=== PATIENT | male | born 1985 | race Caucasian/White ===

== ENCOUNTER 2017-05-01 13:38 | Emergency (ER) | payer OTHER ==
[2017-05-01 13:49] VITALS: BP 144/87
[2017-05-01] MEDS ORDERED: NAPROXEN 250 MG TABLET PO ONE (14:01)
--- NOTE | 2017-05-01 14:04 | ER Document Report ---
ED Extremity Problem, Lower - General Chief Complaint: Foot Pain Stated Complaint: BILATERAL FOOT INJURY Time Seen by Provider: 05/01/17 13:57 Notes: Patient is a 31-year-old male who presents with bilateral plantar foot pain after he jumped off a loft and landed on his bilateral heels. He is having worsening pain at his arches and his Achilles tendon. Denies back pain, open wounds, numbness or tingling. TRAVEL OUTSIDE OF THE [place] IN LAST 30 DAYS: No - Related Data Allergies/Adverse Reactions: No Known Allergies Allergy (Verified 05/01/17 13:47) Past Medical History - General Information source: Patient - Social History Smoking Status: Current Every Day Smoker Chew tobacco use (# tins/day): No Frequency of alcohol use: Social Drug Abuse: None Family History: Reviewed & Not Pertinent Patient has suicidal ideation: No Patient has homicidal ideation: No Renal/ Medical History: Denies: Hx Peritoneal Dialysis Surgical Hx: Negative - Immunizations Hx Diphtheria, Pertussis, Tetanus Vaccination: Yes Review of Systems - Review of Systems Notes: REVIEW OF SYSTEMS: CONSTITUTIONAL: -fevers, -chills EENT: -eye pain, -difficulty swallowing, -nasal congestion CARDIOVASCULAR:-chest pain, -syncope. RESPIRATORY: -cough, -SOB GASTROINTESTINAL: -abdominal pain, - nausea, -vomiting, -diarrhea GENITOURINARY: -dysuria, -hematuria MUSCULOSKELETAL: +B/L foot pain, -back pain, -neck pain SKIN: -rash or skin lesions. HEMATOLOGIC: -easy bruising or bleeding. LYMPHATIC: -swollen, enlarged glands. NEUROLOGICAL: -altered mental status or loss of consciousness, -headache, - neurologic symptoms PSYCHIATRIC: -anxiety, -depression. ALL OTHER SYSTEMS REVIEWED AND NEGATIVE. Physical Exam - Vital signs Vitals: Temp Pulse Resp BP Pulse Ox 98.0 F 99 16 144/87 H 98 05/01/17 13:48 05/01/17 13:48 05/01/17 13:48 05/01/17 13:48 05/01/17 13:48 - Notes Notes: PHYSICAL EXAMINATION: GENERAL: Well-appearing, well-nourished and in no acute distress. HEAD: Atraumatic, normocephalic. EYES: Pupils equal round and reactive to light, extraocular movements intact, sclera anicteric, conjunctiva are normal. ENT: nares patent, oropharynx clear without exudates. Moist mucous membranes. NECK: Normal range of motion, supple without lymphadenopathy LUNGS: Breath sounds clear to auscultation bilaterally and equal. No wheezes rales or rhonchi. HEART: Regular rate and rhythm without murmurs ABDOMEN: Soft, nontender, normoactive bowel sounds. No guarding, no rebound. No masses appreciated. EXTREMITIES: Normal range of motion, no pitting or edema. No cyanosis. Tenderness of B/L calcaneus and arch of feet. Achilles tendon intact. NEUROLOGICAL: Cranial nerves grossly intact. Normal speech, normal gait. Normal sensory and motor exams. PSYCH: Normal mood, normal affect. SKIN: Warm, Dry, normal turgor, no rashes or lesions noted. Course - Re-evaluation Re-evalutation: Patient has no fractures on foot x-rays. Will treat his contusions with anti- inflammatories, ice packs and a few tramadol. - Vital Signs Vital signs: Temp Pulse Resp BP Pulse Ox 98.0 F 99 16 144/87 H 98 05/01/17 13:48 05/01/17 13:48 05/01/17 13:48 05/01/17 13:48 05/01/17 13:48 - Diagnostic Test Radiology reviewed: Image reviewed, Reports reviewed Radiology results interpreted by me: B/L feet: NAD Discharge - Discharge Clinical Impression: Contusion of foot or heel Qualifiers: Encounter type: initial encounter Laterality: unspecified laterality Qualified Code(s): S90.30XA - Contusion of unspecified foot, initial encounter Condition: Stable Disposition: HOME, SELF-CARE Additional Instructions: Contusion Your injury has resulted in a contusion -- a crushing of the deep tissues. No injury to important structures was detected during the physician's exam. Contusions vary in the amount of pain they cause, and in the length of time required for healing. Typically, the area will become bruised, and will remain painful to touch for two or three weeks. However, most patients are back to working and playing within a few days. After the initial period of rest and cold-packs, your symptoms (together with the doctor's recommendations) will determine how rapidly you can get back to full activity. Usually this means "do what feels okay, but don't do things that hurt." If re-examination was recommended, it's important to follow up as instructed. Call the doctor or return any time if pain increases, if swelling becomes severe, if you develop numbness or weakness in an injured extremity, or if any other alarming symptoms occur. Prescriptions: Tramadol HCl [Ultram] 50 mg PO Q8H PRN #8 tablet PRN Reason:
--- NOTE | 2017-05-01 14:46 | RADIOLOGY REPORT (SQ) ---
EXAM DESCRIPTION: FOOT RIGHT COMPLETE COMPLETED DATE/TIME: 05/01/2017 2:14 pm REASON FOR STUDY: B/L foot injury COMPARISON: None. NUMBER OF VIEWS: Three views. TECHNIQUE: AP, lateral and oblique radiographic images acquired of the right foot. LIMITATIONS: None. FINDINGS: MINERALIZATION: Normal. BONES: No acute fracture or dislocation. No worrisome bone lesions. JOINTS: No effusions. SOFT TISSUES: No soft tissue swelling. No foreign body. OTHER: No other significant finding. IMPRESSION: NEGATIVE STUDY OF THE RIGHT FOOT. NO RADIOGRAPHIC EVIDENCE OF ACUTE INJURY. TECHNICAL DOCUMENTATION: JOB ID: [id number] [employer]- All Rights Reserved
--- NOTE | 2017-05-01 14:47 | RADIOLOGY REPORT (SQ) ---
EXAM DESCRIPTION: FOOT LEFT COMPLETE COMPLETED DATE/TIME: 05/01/2017 2:14 pm REASON FOR STUDY: B/L foot injury COMPARISON: None. NUMBER OF VIEWS: Three views. TECHNIQUE: AP, lateral and oblique radiographic images acquired of the left foot. LIMITATIONS: None. FINDINGS: MINERALIZATION: Normal. BONES: No acute fracture or dislocation. No worrisome bone lesions. JOINTS: No effusions. SOFT TISSUES: No soft tissue swelling. No foreign body. OTHER: No other significant finding. IMPRESSION: NEGATIVE STUDY OF THE LEFT FOOT. NO RADIOGRAPHIC EVIDENCE OF ACUTE INJURY. TECHNICAL DOCUMENTATION: JOB ID: [id number] [employer]- All Rights Reserved
[2017-05-01] MEDS ORDERED: TRAMADOL HCL 50 MG TABLET PO ONE (14:54)
== END 2017-05-01 14:59 | disposition home or self-care (01) ==
LOC: ER 13:38
DX: S90.30XA Contusion of unspecified foot, initial encounter (principal); M79.671 Pain in right foot; M79.672 Pain in left foot; X58.XXXA Exposure to other specified factors, initial encounter; Y93.39 Activity, other involving climbing, rappelling and jumping off; F17.200 Nicotine dependence, unspecified, uncomplicated
CPT/HCPCS: 99283

== ENCOUNTER 2017-09-18 10:09 | Emergency (ER) | payer OTHER ==
[2017-09-18 10:14] VITALS: BP 132/82
[2017-09-18] MEDS ORDERED: ACETAMINOPHEN 325 MG TABLET PO ONE (10:49)
--- NOTE | 2017-09-18 10:51 | ER Document Report ---
HPI - HPI Pain Level: 4 Notes: Patient is a 32-year-old male no significant past medical history presents ED complaining of right hand pain status post punching a wall yesterday. Patient states he has noticed swelling and bruising to the area. Patient states that the pain does not radiate. He is still able to use his hand and move his wrist , but does have decreased range of motion and strength because of the pain and swelling. Denies any drug allergies. Patient admits to smoking but denies any IV drug use. Patient denies any contact to another human including the mouth/ teeth. Denies any headache, fever, head injury, neck pain, changes in vision/ speech/mentation/hearing, URI, sore throat, chest pain, palpitations, syncope, cough, shortness of breath, wheeze, dyspnea, abdominal pain, nausea/vomiting/ diarrhea, urinary retention, dysuria, hematuria, loss of control of bowel or bladder, numbness/tingling, saddle anesthesia, muscle paralysis/weakness, or rash. - ROS Notes: REVIEW OF SYSTEMS: CONSTITUTIONAL : Denies fever, chills, or sweats. Denies recent illness. EENT: Denies eye, ear, throat, or mouth pain or symptoms. Denies nasal or sinus congestion or discharge. Denies throat, tongue, or mouth swelling or difficulty swallowing. CARDIOVASCULAR: Denies chest pain. Denies palpitations or racing or irregular heart beat. Denies ankle edema. RESPIRATORY: Denies cough, cold, or chest congestion. Denies shortness of breath, difficulty breathing, or wheezing. GASTROINTESTINAL: Denies abdominal pain or distention. Denies nausea, vomiting , or diarrhea. GENITOURINARY: Denies difficulty urinating, painful urination, burning, frequency, blood in urine, or discharge. MUSCULOSKELETAL: see hpi SKIN: Denies rash, lesions or sores. NEUROLOGICAL: Denies confusion or altered mental status. Denies passing out or loss of consciousness. Denies dizziness or lightheadedness. Denies headache. Denies weakness or paralysis or loss of use of either side. Denies problems with gait or speech. Denies sensory loss, numbness, or tingling. ALL OTHER SYSTEMS REVIEWED AND NEGATIVE. Dictation was performed using [employer] voice recognition software Past Medical History - Social History Smoking Status: Current Every Day Smoker Family History: Reviewed & Not Pertinent Renal/ Medical History: Denies: Hx Peritoneal Dialysis - Immunizations Hx Diphtheria, Pertussis, Tetanus Vaccination: Yes Vertical Provider Document - CONSTITUTIONAL Agree With Documented VS: Yes Notes: PHYSICAL EXAMINATION: GENERAL: Well-appearing, well-nourished and in no acute distress. HEAD: Atraumatic, normocephalic. EYES: Pupils equal round and reactive to light, extraocular movements intact, sclera anicteric, conjunctiva are normal. ENT: EAC clear b/l. TM's intact b/l without erythema, fluid, or perforation. Nares patent and without discharge. oropharynx clear without exudates. No tonsilar hypertrophy or erythema. Moist mucous membranes. No sinus tenderness. NECK: Normal range of motion, supple without lymphadenopathy LUNGS: Breath sounds clear to auscultation bilaterally and equal. No wheezes rales or rhonchi. HEART: Regular rate and rhythm without murmurs, rubs, gallops. ABDOMEN: Soft, nontender, nondistended abdomen. No guarding, no rebound. No masses appreciated. Normal bowel sounds present. No CVA tenderness bilaterally. Musculoskeletal: Rt hand: LROM to passive/active. Strength 4+/5. + swelling and ecchymosis noted to dorsal lateral hand. + tenderness to metacarpals 4-5th. N/ V intact distal. No scaphoid tenderness. No other bony tenderness to the hand/ fingers. Extremities: No cyanosis, clubbing, or edema b/l. Peripheral pulses 2+. Capillary refill less than 3 seconds. NEUROLOGICAL: Normal speech, normal gait. Normal sensory, motor exams PSYCH: Normal mood, normal affect. SKIN: Abrasions to knuckles rt hand, otherwise Warm, Dry, normal turgor, no rashes or lesions noted. - INFECTION CONTROL TRAVEL OUTSIDE OF THE [place] IN LAST 30 DAYS: No - RESPIRATORY O2 Sat by Pulse Oximetry: 96 Course - Re-evaluation Re-evalutation: 09/18/17 11:18 Patient is an afebrile, well-hydrated, 32-year-old male who presents the ED with a rt fourth and fifth metacarpal fracture. Vitals are stable. PE is otherwise unremarkable for any neurovascular compromise, obvious tendon/ ligament rupture, or other systemic emergent condition at this time. See x-ray results. Ulnar gutter splint was placed today. Tylenol given p.o. I will send her home with a prescription for a [place] dispense pack from the ED. Conservative measures for symptoms otherwise. Recheck with your PCM this week. Call orthopedics tomorrow to schedule appointment for further evaluation and management. Return to the ED with any worsening/concerning symptoms otherwise as reviewed in discharge. Patient is in agreement. - Vital Signs Vital signs: Temp Pulse Resp BP Pulse Ox 97.9 F 90 16 132/82 H 96 09/18/17 10:13 09/18/17 10:13 09/18/17 10:13 09/18/17 10:13 09/18/17 10:13 Procedures - Immobilization Right Hand Time completed: 11:15 Pre-Proc Neuro Vasc Exam: Normal Immobilizer type: Ulnar - ulnar gutter- locked up 3-5th digits. Performed by: PCT Post-Proc Neuro Vasc Exam: Normal, Unchanged from pre-exam Discharge - Discharge Clinical Impression: Metacarpal bone fracture Qualifiers: Encounter type: initial encounter Metacarpal bone: unspecified metacarpal Fracture type: closed Metacarpal location: base Fracture morphology: unspecified fracture morphology Fracture alignment: displaced Qualified Code(s) : S62.319A - Displaced fracture of base of unspecified metacarpal bone, initial encounter for closed fracture Condition: Stable Disposition: HOME, SELF-CARE Instructions: Fractured Fifth Metacarpal ([facility]), Fractured Metacarpal ([facility]), Ice & Elevation ([facility]), Splint Precautions ([facility]) Additional Instructions: Rest, Ice, Compression, Elevation Use splint as directed Tylenol/ibuprofen as needed Light stretches daily Strength exercises as able Moist heat and massage may help F/u with your PCP in 3-5 days for a recheck Call orthopedics tomorrow to schedule an appointment for further evaluation and management Return to the ED with any worsening symptoms and/or development of fever, headache, chest pain, palpitations, syncope, shortness of breath, trouble breathing, abdominal pain, n/v/d, muscle weakness/paralysis, numbness/tingling, swelling, redness, or other worsening symptoms that are concerning to you. Forms: Elevated Blood Pressure, Smoking Cessation Education Referrals: [facility] ([place] [Provider Group] - Follow up in 3-5 days
[2017-09-18] MEDS ORDERED: HYDROCODONE/ACETAMINOPHEN 5-325 MG 6 TAB/DSPK PO PRN (10:53)
--- NOTE | 2017-09-18 11:02 | RADIOLOGY REPORT (SQ) ---
EXAM DESCRIPTION: HAND RIGHT 3 VIEWS COMPLETED DATE/TIME: 09/18/2017 10:46 am REASON FOR STUDY: pain COMPARISON: None. EXAM PARAMETERS: NUMBER OF VIEWS: Three views. TECHNIQUE: AP, lateral and oblique radiographic images acquired of the right hand. LIMITATIONS: None. FINDINGS: MINERALIZATION: Normal. BONES: Comminuted fractures at the base of the 4th and 5th metacarpal. JOINTS: No effusions. SOFT TISSUES: No soft tissue swelling. No foreign body. OTHER: No other significant finding. IMPRESSION: FRACTURES AT THE BASE OF THE 4TH AND 5TH METACARPAL. TECHNICAL DOCUMENTATION: JOB ID: [id number] [employer]- All Rights Reserved
== END 2017-09-18 11:20 | disposition home or self-care (01) ==
LOC: ER 10:09
PROC: 2W3CX1Z Immobilization of Right Lower Arm using Splint (ICD-10-PCS; principal; 2017-09-18)
DX: S62.304A Unspecified fracture of fourth metacarpal bone, right hand, initial encounter for closed fracture (principal); S62.316A Displaced fracture of base of fifth metacarpal bone, right hand, initial encounter for closed fracture; M79.641 Pain in right hand; M79.89 Other specified soft tissue disorders; W22.01XA Walked into wall, initial encounter
CPT/HCPCS: 99283